=== PATIENT | male | born 1985 | race Caucasian/White ===

== ENCOUNTER → 2022-12-29 13:41 | Outpatient (CLI) | payer OTHER, SELFPAY ==
[2022-12-29 15:40] LABS: Add Manual Diff / Slide Review NO; Basophils Absolute Auto 100 /uL (0-100); Basophils Percent Auto 1.2 % (0-2); Eosinophils Absolute Auto 0 /uL (0-450); Eosinophils Percent Auto 0.3 % (2-4); Hemoglobin 15.1 g/dL (13.5-17.5); Lymphocytes Absolute Auto 1500 /uL (1100-4500); Lymphocytes Percent Auto 27.8 % (25-40); Mean Corpuscular HGB Conc 34.2 % (30-36); Mean Corpuscular Hemoglobin 30.1 PG (26-34); Monocytes Absolute Auto 400 /uL (0-900); Monocytes Percent Auto 8.3 % (3-14); Neutrophils Absolute Auto 3300 /uL (1500-7000); Neutrophils Percent Auto 62.4 % (50-75); Platelet Count 227 X10^3/uL (150-400); Red Blood Cell Count 5.01 X10^6/uL (4.5-5.9); Red Cell Distribution Width 12.9 % (11.6-14.8); White Blood Cell Count 5.4 X10^3/uL (4.5-11.0)
[2022-12-29 16:24] LABS: Alanine Aminotransferase 28 IU/L (<50); Albumin 4.7 g/dL (3.5-5.0); Albumin Globulin Ratio 1.5 (1.0-2.8); Alkaline Phosphatase 77 U/L (38-126); Aspartate Aminotransferase 32 IU/L (17-59); BUN Creatinine Ratio 11.9 (6-22); Bilirubin Total 1.3 mg/dL (0.2-1.3); Blood Urea Nitrogen 12 mg/dL (9-20); Calcium 9.3 mg/dL (8.4-10.2); Carbon Dioxide 28 mmol/L (22-32); Chloride 102 mmol/L (98-107); Cholesterol 152 mg/dL (140-199); Estimated Glomerular Filt Rate > 60 mL/min (>60); Globulin 3.1 g/dL (1.7-4.1); Glucose 90 mg/dL (70-100); HDL Cholesterol 51 mg/dL (40-60); HEMOLYSIS < 15 (0-50); LDL Cholesterol Calculated 87 mg/dL (<100); Potassium 4.2 mmol/L (3.4-5.1); Sodium 137 mmol/L (137-145); Total Protein 7.8 g/dL (6.3-8.2); Triglycerides 70 mg/dL (35-150)
[2022-12-29 16:45] LABS: TSH w/ Reflex to FT4 0.76 uIU/mL (0.47-4.68)
== END ==
PROVIDERS: PCP Family Medicine; Referring Provider Family Medicine; Visit Provider Family Medicine
DX: Z00.00 Encounter for general adult medical examination without abnormal findings (principal)
CPT/HCPCS: 36415; 80053; 80061; 84443; 85025

== ENCOUNTER 2025-01-10 16:22 | Emergency (ER) | payer BC, SELFPAY ==
[2025-01-10 16:41] VITALS: BP 130/77; PULSE 72; RESP 18; TEMP 36.9; O2SAT 100; BMI 26.5
--- NOTE | 2025-01-10 17:25 | ED_ITS ---
HPI - Allergic Reaction <Allie Patrick PA-C - Last Filed: 01/10/25 18:14> General Chief complaint: Allergic Reaction Stated complaint: rash, medication reaction Time Seen by Provider: 01/10/25 17:15 Source: patient Mode of arrival: Ambulatory History of Present Illness HPI narrative: Mr. Schwartz is a very pleasant 39-year-old male with a past medical history bipolar disorder presents to the emergency department for possible medication reaction. Patient has stopped taking sertraline one week ago, and was started on lamotrigine. He took 25 mg for 4 days and then 50 mg for 3 days. He was told to look out for signs of a rash and if so to come to the emergency department. Patient feels like he started to have some itching around his eyebrows, above his groin, and on his forearms. No blisters, red rash, mucous membrane lesions, fevers, chills or any other symptoms. No medications prior to arrival. Related Data Previous Rx's ?Medication ?Instructions ?Recorded sertraline 50 mg tablet 50 mg PO DAILY #30 tabs 12/29 Held on 01/03/25. Instructions: hypomania lamotrigine 200 mg tablet 200 mg PO DAILY #30 tabs lamotrigine 25 mg tablet (Lamictal) See Rx Instruction s PO .COMPLEX 35 01/03/25 days #70 tabs Allergies Allergy/AdvReac Type Severity Reaction Status Date / Time No Known Drug Allergies Allergy Unverified 10/17/24 13:11 Review of Systems <Allie Patrick PA-C - Last Filed: 01/10/25 18:14> Review of Systems ROS Unobtainable: All systems reviewed & are unremarkable except as noted in HPI and below Patient History <Allie Patrick PA-C - Last Filed: 01/10/25 18:14> Medical History Bipolar II disorder MDD (major depressive disorder), recurrent episode, moderate ADHD, predominantly inattentive type Anxiety disorder, unspecified Unspecified mood [affective] disorder Chronic lower back pain Acquired leg length discrepancy Bipolar 1 disorder Preventative health care Exam <Allie Patrick PA-C - Last Filed: 01/10/25 18:14> Narrative Exam Narrative: GENERAL: 39 year old patient appears stated age. Well-developed patient, in no acute distress. HEAD: Atraumatic. Normocephalic. EYES: PERRL. Extraocular motions intact. No scleral icterus. No injection or drainage. ENT: Nose without bleeding, purulent drainage. Throat without erythema, tonsillar hypertrophy or exudate. Airway patent. No oropharyngeal mucous membrane lesions. NECK: Trachea midline. Cervical ROM intact. CARDIOVASCULAR: Regular rate and rhythm. RESPIRATORY: ?Nonlabored respirations. ?Speaking in clear, full sentences. ?Clear to auscultation. Breath sounds equal bilaterally. No wheezes, rales, or rhonchi. ? GASTROINTESTINAL: Abdomen soft, non-tender, nondistended. : Patient declines. BACK: Nontender without deformity or crepitance. No flank tenderness. NEURO: AOx3. ?Clear speech. ?Moves all 4 extremities appropriately. SKIN: No obvious rashes. There is faint erythema with some scratch carney on left forearm. Similar faint erythema on right forearm. One small red macule on stomach. Otherwise skin is warm, dry, no blisters, no mucous membrane lesions. Initial Vital Signs Initial Vital Signs: Vital Signs Temperature 98.4 F 01/10/25 16:41 Pulse Rate 72 01/10/25 16:41 Respiratory Rate 18 01/10/25 16:41 Blood Pressure 130/77 01/10/25 16:41 Pulse Oximetry 100 01/10/25 16:41 Oxygen Delivery Method Room Air 01/10/25 16:41 <Flores Cordoba MD - Last Filed: 01/13/25 08:08> Initial Vital Signs Initial Vital Signs: Vital Signs Temperature 98.4 F 01/10/25 16:41 Pulse Rate 72 01/10/25 16:41 Respiratory Rate 18 01/10/25 16:41 Blood Pressure 130/77 01/10/25 16:41 Pulse Oximetry 100 01/10/25 16:41 Oxygen Delivery Method Room Air 01/10/25 16:41 Course <Allie Patrick PA-C - Last Filed: 01/10/25 18:14> Vital Signs Vital signs: Vital Signs - 8 hr 01/10/25 16:41 01/10/25 17:51 Temperature 98.4 F Pulse Rate 72 Respiratory Rate 18 15 Blood Pressure 130/77 Pulse Oximetry 100 Oxygen Delivery Method Room Air <Flores Cordoba MD - Last Filed: 01/13/25 08:08> Vital Signs Vital signs: Vital Signs - 8 hr 01/10/25 16:41 01/10/25 17:51 Temperature 98.4 F Pulse Rate 72 Respiratory Rate 18 15 Blood Pressure 130/77 Pulse Oximetry 100 Oxygen Delivery Method Room Air MDM - Allergic Reaction <Allie Patrick PA-C - Last Filed: 01/10/25 18:14> Medical Records Attestation: I reviewed the patient's medical records. MDM Narrative Medical decision making narrative: 39-year-old male with a past medical history bipolar disorder presents to the emergency department for possible medication reaction. Differential diagnosis includes but is not limited to drug rash, urticaria medication side effect, contact dermatitis, allergies, etc. On exam patient is in no acute distress, nontoxic-appearing, all vital signs within normal limits. He is very faint erythema with some scratch carney localized in the left forearm. No other signs of rash, no mucous membrane involvement, no involvement of the palms. I had an extensive discussion with the patient about possible medication reactions or drug rashes including specific concerns with Lamictal. At this time he does not have any physical exam findings of concern however we did discuss that if he wishes to stop the medication at this time he could otherwise he can continue taking and consult with a psychiatrist tomorrow with the understanding that he would need to discontinue immediately return to the ER if anything worsens. I did recommend an antihistamine at home for now. Patient feels comfortable continuing with his medication and following with strict ED return precautions. Discussed strict ED return precautions, follow up with PCP/psychiatry. Patient verbalized understanding of all information is agreeable with the plan. He is stable for discharge home. Discharge Plan Departure Patient Disposition: Home Clinical Impression: Rash Instructions: DI for Adverse Drug Reaction -- Allergic Activity Restrictions/Additional Instructions: Dear Mr. Schwartz, Thank you for coming to the emergency department. Today you were evaluated for skin rash on the bilateral forearms, groin, and some itching on the face as well. At this time your rash appears very mild does not seem like a typical drug rash. I recommend taking an antihistamine. You may continue taking your Lamictal, but please talk with your psychiatrist tomorrow. If you were to develop any new or worsening rash, stop the medication immediately and return to the ER. Bright red rash, severe itching, blisters, lesions inside the mouth are all reasons to return immediately. Please follow up with your primary care doctor within the next 2-3 days for ER follow-up. (If you do not have a PCP you can call [phone]. ?to schedule an appointment with an [facility] Primary Care Provider) IF YOU DEVELOP ANY NEW OR WORSENING SYMPTOMS, RETURN TO THE ER! Please read the attached instructions, they highlight more specific treatments and interventions for you at home. Thank you for letting me participate in your care, Allie Patrick PA-C Prescriptions: No Action lamotrigine 200 mg tablet 200 mg PO DAILY Qty: 30 2RF Rx Instructions: start after completing one week of 100mg daily lamotrigine [Lamictal] 25 mg tablet See Rx Instructions PO .COMPLEX 35 Days Qty: 70 0RF Rx Instructions: Take one 25mg tablet by mouth daily for 14 days, then increase to two 25mg tablets (50mg total) by mouth daily for 14 days, then increase to four 25mg tablets (100mg total) by mouth daily for 7 days sertraline 50 mg tablet 50 mg PO DAILY Qty: 30 0RF Referrals: Corey Sosa, DO [Primary Care Provider, Family Practice] Stand Alone Forms: Patient Portal/API ED Sign-out <Flores Cordoba MD - Last Filed: 01/13/25 08:08> [facility] Att[facility]: I was immediately available in the department for consultation throughout this patient's visit. Flores Cordoba MD
[2025-01-10 17:51] VITALS: RESP 15
== END 2025-01-10 17:52 | disposition home or self-care (01) ==
PROVIDERS: Emergency Provider Physician Assistant; PCP Family Medicine
DX: R21 Rash and other nonspecific skin eruption (principal)
CPT/HCPCS: 99281